=== PATIENT | male | born 1950 | race Caucasian/White ===

== ENCOUNTER 2016-08-22 09:53 | Inpatient (IN) ==
[2016-08-16 10:19] LABS: MANUAL DIFF NEEDED? NO; URINE MICRO REVIEW NEEDED? NO; URINE SOURCE CLEAN CATCH
--- NOTE | 2016-08-16 10:21 | EKG Report ---
Test Performed on : 08/16/2016 10:09:36 AM Test Reason : PAT Blood Pressure : / mmHG Vent. Rate : 065 BPM Atrial Rate : 091 BPM P-R Int : 000 ms QRS Dur : 148 ms QT Int : 450 ms P-R-T Axes : 000 -81 093 degrees QTc Int : 468 ms Ventricular-paced rhythm with occasional premature ventricular complexes. Abnormal ECG When compared with ECG of 19-FEB-2016 23:36, premature ventricular complexes. are now present Vent. rate has decreased BY 11 BPM Confirmed by Garcia KEARNEY, Steve Yepez ([id number]) on 08/16/2016 3:00:57 PM
[2016-08-16 11:07] LABS: BASO% 0.7 % (0.0-0.8); EOS# 0.31 X1000 (0.0-0.7); EOS% 3.8 % (0.0-10.0); HEMATOCRIT 35.9 % (42.0-52.0); HEMOGLOBIN 11.6 g/dL (14.0-18.0); LYMPH# 1.84 X1000 (1.2-3.4); LYMPH% 22.6 % (20.5-51.1); MCH 29.6 PG (27-31); MCHC 32.3 g/dL (33-37); MCV 91.6 FL (81-99); MONO# 0.67 X1000 (0.11-0.59); MONO% 8.2 % (1.7-9.3); MPV 12.2 FL (7.4-10.4); NEUT% 64.7 % (42.2-75.2); PLT 221 X1000 (130-400); RBC 3.92 XMIL (4.7-6.1)
[2016-08-16 11:09] LABS: BILIRUBIN URINE NEGATIVE (NEGATIVE); BLOOD URINE NEGATIVE (NEGATIVE); COLOR YELLOW; GLUCOSE URINE NEGATIVE (NEGATIVE); LEUKOCYTES URINE NEGATIVE (NEGATIVE); NITRITE URINE NEGATIVE (NEGATIVE); PH URINE 5.5; PROTEIN URINE 100 mg/dL (NEGATIVE); SP GRAVITY URINE 1.011; TURBIDITY URINE CLEAR (CLEAR); UROBILINOGEN URINE NORMAL (NORMAL)
[2016-08-16 11:12] LABS: UR EPITHELIAL CELLS <10 /HPF (<10); URINE BACTERIA NEGATIVE /HPF; URINE RBC <10 /HPF (<10); URINE WBC <10 /HPF (<10)
[2016-08-16 11:13] LABS: INR 1.07; PROTIME 11.3 Seconds (9.2-11.7)
[2016-08-16 11:21] LABS: AGAP 9; BUN 31 mg/dL (8-22); CALCIUM 9.4 mg/dL (8.8-10.2); CHLORIDE 109 mmol/L (98-107); COSMO 288; POTASSIUM 5.8 mmol/L (3.5-5.1); SODIUM 140 mmol/L (136-145); TCO2 22 mmol/L (25-35)
[~2016-08-22 09:53] MED LIST: ALDACTONE PO SCH; AMARYL PO SCH; GLUCOPHAGE PO SCH; LASIX PO SCH; NITROGLYCERIN SL PRN; PRINIVIL PO SCH; ZYLOPRIM PO SCH
[2016-08-22] MEDS ORDERED: PEPCID ONE (10:31)
[2016-08-22] MEDS ORDERED: COLACE ONE (10:31)
[2016-08-22] MEDS ORDERED: CELEBREX ONE (10:32)
[2016-08-22] MEDS ORDERED: REGLAN ONE (10:32)
[2016-08-22] MEDS ORDERED: LYRICA ONE (10:32)
[2016-08-22] MEDS ORDERED: LR 1,000 ML ONE (10:33)
[2016-08-22] MEDS ORDERED: KEFZOL 2 GM/D5W 2 GM/50 ML IVPB ONE (10:33)
[2016-08-22] MEDS ORDERED: DIPRIVAN 1% ONE (11:19)
[2016-08-22] MEDS ORDERED: QUELICIN (DOSE) ONE (11:19)
[2016-08-22] MEDS ORDERED: XYLOCAINE-MPF 2% ONE (11:19)
[2016-08-22] MEDS ORDERED: TORADOL ONE (12:13)
[2016-08-22] MEDS ORDERED: CYKLOKAPRON 1,000 MG/NS 1,000 MG/100 ML IVPB ONE (12:13)
[2016-08-22] MEDS ORDERED: DURAMORPH ONE (12:13)
[2016-08-22] MEDS ORDERED: EXPAREL 1.3% ONE (12:13)
[2016-08-22] MEDS ORDERED: NEOSPORIN G.U. IRRIGANT ONE (12:13)
[2016-08-22] MEDS ORDERED: SENSORCAINE 0.25%/EPI 1:200,000 ONE (12:13)
[2016-08-22] MEDS ORDERED: SODIUM CHLORIDE 0.9% ONE (12:13)
[2016-08-22] MEDS ORDERED: ZEMURON ONE ×2 (12:33→12:52)
[2016-08-22] MEDS ORDERED: DECADRON ONE (12:35)
[2016-08-22] MEDS ORDERED: OFIRMEV 1000 MG/ISOTONIC SOLN 1,000 MG/100 ML BOTTLE ONE (12:35)
[2016-08-22] MEDS ORDERED: EPHEDRINE ONE (13:06)
[2016-08-22] MEDS ORDERED: ROBINUL ONE ×2 (13:07→13:36)
[2016-08-22] MEDS ORDERED: NEOSTIGMINE ONE (13:37)
[2016-08-22] MEDS: MORPHINE ONE ×2 (14:41→14:51)
[2016-08-22] MEDS ORDERED: NS 1,000 ML ONE (14:41)
--- NOTE | 2016-08-22 14:56 | Diag Imaging Result Doc PS360 ---
SHOULDER 1 VIEW RIGHT - 08/22/2016 INDICATION: post op total shoulder TECHNIQUE: COMPARISON: 04/11/2015 FINDINGS: There is a right total shoulder arthroplasty. Alignment is anatomic. No hardware fracture or loosening. IMPRESSION: No evidence of complication. Electronically signed by Pardeep Johnson 08/22/2016 2:54 PM
[2016-08-22] MEDS ORDERED: ZOFRAN PO PRN (15:15)
[2016-08-22] MEDS ORDERED: MILK OF MAGNESIA PO PRN (15:15)
--- NOTE | 2016-08-22 15:31 | OPERATIVE NOTE ---
PROCEDURE DATE: 08/22/2016 PREOPERATIVE DIAGNOSIS: Right glenohumeral arthritis with chronic rotator cuff tear. POSTOPERATIVE DIAGNOSIS: Right glenohumeral arthritis with chronic rotator cuff tear. PROCEDURE: Right reverse shoulder arthroplasty, DePuy Delta XTEND size 14, Press-Fit stem, a size 42+ 6 humeral cup, a 42 eccentric Glenosphere and a standard metaglene. SURGEON: Steve Florentino MD MATHEMATICAL SCIENCES PROFESSOR: malt specifications control assistant: PARAS Fajardo 2ND MATHEMATICAL SCIENCES PROFESSOR: Elliot Kelley RN. ANESTHESIA: General. IV FLUIDS: 1200 mL lactated Ringer's. ESTIMATED BLOOD LOSS: 150 mL. COMPLICATIONS: None. INDICATION: The patient is a 65-year-old male with chronic history of worsening pain and discomfort of his right shoulder. Continued pain discomfort despite appropriate nonoperative treatment. His radiographic studies revealed findings consistent with degenerative glenohumeral arthritis with chronic rotator cuff tear. Recommendation to proceed with right reverse shoulder arthroplasty was offered. Risks and benefits of surgery were explained, including the risks of anesthesia, , bleeding, infection, failure to relieve pain, postoperative stiffness, nerve injury, blood clots, and other imponderables. All questions answered. The patient and family wished to proceed with surgery. DETAILS OF OPERATION: The patient was taken to the operating room, placed supinely on the operating table. Once adequate anesthesia was obtained, the patient was placed in a semi-Abbott beach-chair position. The right shoulder was subsequently prepped and draped in the usual sterile fashion. A standard deltopectoral incision was made with the skin knife. Medial and lateral skin envelopes were developed. Standard hemostasis was obtained using electrocautery. The deltopectoral interval was then developed. Christian retractors were placed. Attention then turned to the subscapularis after elevation of the conjoined tendon had been performed, and the deep Christian retractor was placed. Retracted the conjoined tendon. Stay sutures placed. 1 cm medial to the insertion site, the subscapularis was released. Attention was then turned to the proximal humerus. The patient did reveal the chronic rotator cuff tear involving the superior aspect of the rotator cuff. A starting reamer was then passed in the intramedullary canal. Sequential reaming was performed up to size 14. The intramedullary guide with a proximal humeral cutting block was pinned in position. The humeral head was then resected. A protective disk was then placed. Circumferential dissection was then performed with a deep knife. A guide was then placed on the glenoid and a guide pin was placed. Reaming was then conducted. The central hole was then dilated. Copious irrigation was then performed with antibiotic irrigation. A standard metaglene was then placed, four locking screws were placed and had good purchase and good, stable fixation. The wound was copiously irrigated once again. A 42 eccentric Glenosphere was then placed with eccentricity placed inferiorly. Attention was then turned to the proximal humerus where an intramedullary guide was placed in position and the proximal humerus was reamed. The intramedullary canal was copiously irrigated with antibiotic pulsatile lavage. A size 14 Press- Fit stem was then placed in position with autologous impaction and bone grafting. Had excellent good fixation and stability. A trial cup size had been placed, 42 +6. Appeared to have excellent stability and range of motion. It was determined to be the correct size. Trial cup was removed. The wound was copiously once again. A 42 + 6 humeral cup was then impacted on the stem. The shoulder was reduced, carried through range of motion and had excellent stability and range of motion. A #2 FiberWire was used to repair the subscapularis tendon. There appeared to be good repair. Exparel was placed in the deep soft tissue, as well as subcutaneous tissue. The wound was copiously irrigated once again with antibiotic irrigation. A 2-0 Vicryl was used to repair the subcutaneous tissue, followed by running 2-0 Prolene. Benzoin and Steri-Strips were applied. Adaptic, sterile 4 x 4, ABD pad and tape were applied to the right shoulder followed by shoulder immobilizer. All counts were correct. Patient tolerated the procedure well and was transferred to the recovery room in stable condition. cc: Steve Florentino MD
[2016-08-22] MEDS: NS 1,000 ML IV SCH (15:57)
[2016-08-22] MEDS: OXY IR PO PRN (15:58)
[2016-08-22] MEDS: MORPHINE IV PRN ×4 (17:18→20:23)
[2016-08-22] MEDS: TYLENOL PO SCH (18:09)
[2016-08-22] MEDS ORDERED: CYKLOKAPRON 1,000 MG in NS 100 ML IV ONE (19:00)
[2016-08-22] MEDS: PRAVACHOL PO SCH (21:22)
[2016-08-22] MEDS: RESTORIL PO SCH (21:22)
[2016-08-22] MEDS: COLACE PO SCH (21:22)
[2016-08-22] MEDS: PERIDEX MT SCH (21:23)
[2016-08-22] MEDS: PRADAXA PO SCH (21:23)
[2016-08-22] MEDS: KEFZOL 1 GM/D5W 1 GM/50 ML IVPB IV SCH (22:45)
[2016-08-23] MEDS: TYLENOL PO SCH ×4 (00:40→17:21)
[2016-08-23] MEDS ORDERED: HUMALOG SUBQ ONE (00:59)
[2016-08-23 01:21] LABS: BASO% 0.1 % (0.0-0.8); EOS# 0.01 X1000 (0.0-0.7); EOS% 0.1 % (0.0-10.0); HEMATOCRIT 35.1 % (42.0-52.0); HEMOGLOBIN 11.9 g/dL (14.0-18.0); IMM GRAN# 0.04 X1000 (0.0-0.04); IMM GRAN% 0.3 % (0.0-0.5); LYMPH# 0.63 X1000 (1.2-3.4); LYMPH% 4.3 % (20.5-51.1); MANUAL DIFF NEEDED? YES; MCH 29.8 PG (27-31); MCHC 33.9 g/dL (33-37); MCV 87.8 FL (81-99); MONO% 0.7 % (1.7-9.3); MPV 12.4 FL (7.4-10.4); NEUT% 94.5 % (42.2-75.2); PLT 242 X1000 (130-400)
[2016-08-23 01:29] LABS: INR 1.02; PROTIME 10.7 Seconds (9.2-11.7)
[2016-08-23 01:42] LABS: BANDS 12 % (0-1); LYMPHS 2 % (21-51)
[2016-08-23 02:18] LABS: CALCIUM 8.8 mg/dL (8.8-10.2); POTASSIUM 5.1 mmol/L (3.5-5.1); TOTAL BILIRUBIN 0.24 mg/dL (0.20-1.00); TOTAL PROTEIN 6.9 g/dL (6.3-8.3)
[2016-08-23] MEDS: KEFZOL 1 GM/D5W 1 GM/50 ML IVPB IV SCH (03:04)
[2016-08-23] MEDS: MORPHINE IV PRN (03:12)
[2016-08-23 06:13] LABS: HEMATOCRIT 32.7 % (42.0-52.0); HEMOGLOBIN 10.8 g/dL (14.0-18.0)
[2016-08-23] MEDS: HUMALOG SUBQ SCH ×6 (06:18→21:55)
[2016-08-23 06:50] LABS: URINE MICRO REVIEW NEEDED? NO; URINE SOURCE CATH
--- NOTE | 2016-08-23 06:57 | EKG Report ---
Test Performed on : 08/23/2016 06:24:04 AM Test Reason : Post-Op,Hypothermia,Uncontrolled DM Blood Pressure : / mmHG Vent. Rate : 083 BPM Atrial Rate : 108 BPM P-R Int : 000 ms QRS Dur : 102 ms QT Int : 364 ms P-R-T Axes : 000 067 -39 degrees QTc Int : 427 ms Atrial fibrillation. Low voltage QRS Nonspecific T wave abnormality Abnormal ECG When compared with ECG of 16-AUG-2016 10:09, Atrial fibrillation. has replaced Electronic ventricular pacemaker Confirmed by Horace KEARNEY, Berhane Morrison ([id number]) on 08/24/2016 1:00:06 PM
[2016-08-23] MEDS ORDERED: HUMALOG SUBQ SCH (07:00)
[2016-08-23 07:01] LABS: BILIRUBIN URINE NEGATIVE (NEGATIVE); BLOOD URINE MODERATE (NEGATIVE); COLOR YELLOW; GLUCOSE URINE NEGATIVE (NEGATIVE); LEUKOCYTES URINE NEGATIVE (NEGATIVE); NITRITE URINE NEGATIVE (NEGATIVE); PROTEIN URINE 30 mg/dL (NEGATIVE); SP GRAVITY URINE 1.018; TURBIDITY URINE CLEAR (CLEAR); UROBILINOGEN URINE NORMAL (NORMAL)
[2016-08-23 07:02] LABS: UR EPITHELIAL CELLS <10 /HPF (<10); URINE BACTERIA NEGATIVE /HPF; URINE RBC TNTC /HPF (<10); URINE WBC <10 /HPF (<10)
[2016-08-23] MEDS ORDERED: INSULIN PEN NEEDLES ONE (07:09)
[2016-08-23 07:38] LABS: HEMOGLOBIN A1C 6.7 % (4.8-6.0)
--- NOTE | 2016-08-23 07:39 | CONSULTATION ---
DATE OF CONSULTATION: 08/23/2016 PRIMARY CARE PROVIDER: Dr. Lee. TIME OF CONSULTATION: 0030. REASON FOR ADMISSION: For a right reverse shoulder arthroplasty with Dr. Florentino. HISTORY OF PRESENT ILLNESS: Mr. Fernandez is a 66-year-old, male who is being followed by Dr. Florentino for a chronic history of worsening pain and discomfort in his right shoulder. He has right glenohumeral arthritis with chronic rotator cuff tear. He underwent a right reverse shoulder arthroplasty with Dr. Florentino on the morning of 2016. Early this morning, the patient's nurse did notify Dr. Alejo, who was on-call for Dr. Florentino, that the patient had become hypothermic as well as was having some elevated blood glucose levels. Dr. Alejo asked that the hospitalist service be consulted for assistance with medical management. The patient at this time is awake, alert, and oriented to person, place, time, and situation. He denies any pain at this time. He also denies any shortness of breath or chest pain. The patient does report that he is chilled. He did have a rectal temperature of 95.1 degrees. It does look like throughout the day, the patient's temperature did run a little on the low side with readings of 96.2 orally and 96.9 orally. Also, unfortunately, since the patient was NPO for surgery this morning, he did not receive his usual dosage of Levemir 50 units subcutaneous q.a.m. At this time, his blood glucose levels are elevated, reaching as high as in the mid to high 300s. During surgery, the patient did receive reported 1200 mL of lactated Ringer's. He only had an estimated blood loss of 150 mL. Since then, he has been on normal saline at 83 mL per hour and has no signs of any bleeding. He is having adequate urine output as well. The patient does report that he was recently treated, 1-1/2 months ago, for pneumonia. He reports that he, over the past couple of weeks, has had a productive cough with clear sputum that has been green at times. He denies any fever, body aches, or chills. The patient states he feels like he has a rattle in his throat, though at this time is in no respiratory distress and is maintaining adequate oxygen saturation. He denies any chest pain, abdominal pain, nausea, vomiting, or diarrhea. He denies any pain or burning with urination, and denies any pain in his extremities except for his right shoulder which at this time, his pain is controlled. The patient did report that a few days ago, he has some slight swelling in his lower extremities, though there is none present at this time. REVIEW OF SYSTEMS: A 12 point review of systems was conducted with the patient. All were negative except for pertinent positives mentioned above in the HPI. PAST MEDICAL HISTORY: 1. Coronary artery disease, status post myocardial infarction in 2002 with subsequent PCI in 2002. The patient is also status post pacemaker placement in November 2008 for sick sinus syndrome. The patient also does have a history of atrial fibrillation as well and is currently still on Pradaxa 150 mg p.o. twice daily. 2. Congestive heart failure with last echocardiogram in July of 2015 with an ejection fraction of 58%. 3. Diabetes mellitus type 2. 4. Hypertension. 5. Dyslipidemia. 6. History of stroke. 7. Gout. 8. Chronic neck and back pain secondary to degenerative disk disease. 9. Osteoarthritis. 10. Hypothyroidism. PAST SURGICAL HISTORY: 1. Cardiac stent placement in 2002. 2. Pacemaker placement in 2008. 3. Reported ear surgery several years ago for some inner ear issues and equilibrium problems. SOCIAL HISTORY: The patient denies any past or present tobacco or illicit drug use, though did report that he did drink heavily daily for approximately 20 years, though quit in 2002 when he had his heart attack. He states now he only drinks rarely. FAMILY HISTORY: There is a family history of diabetes, dyslipidemia, hypertension, and stroke, as well as heart disease and his mother does have a history of lung cancer. ALLERGIES: Patient reports no known allergies. HOME MEDICATIONS: Allopurinol 300 mg p.o. q.a.m., amlodipine 10 mg p.o. q.a.m. , aspirin 81 mg p.o. q.a.m., atenolol 25 mg p.o. q.a.m., Pradaxa 150 mg p.o. b.i.d., Lasix 80 mg p.o. b.i.d., gabapentin extended release 600 mg p.o. q.a.m., glimepiride 1 mg p.o. daily, Potter 10 mg 1 p.o. t.i.d. for pain, Levemir 50 units subcutaneous q.a.m., lisinopril 40 mg p.o. q.a.m., metformin 500 mg p.o. b.i.d., nitroglycerin sublingual 0.4 mg q.5 minutes p.r.n. for chest pain, pravastatin 20 mg p.o. at bedtime, Aldactone 25 mg a half tablet p.o. q.a.m., and temazepam 30 mg p.o. at bedtime. DIAGNOSTIC DATA/LABORATORY RESULTS: White blood cell count 14.73, hemoglobin 11.9, hematocrit 35.1, platelet count 242,000. PT 10.7, INR 1.02, PTT is 31. Sodium 135, potassium 5.1, chloride 102, bicarb 18, BUN 51, creatinine 1.6, with a GFR of 44, glucose 343, calcium 8.8. Liver function tests are within normal limits. Urinalysis was obtained via clean catch. It was positive for protein. It was negative for glucose, ketones, blood, nitrites, leukocytes, white blood cells, or bacteria. Portable chest x-ray shows no acute abnormality. There was some haziness noted in the right lung base, though this was present on a previous chest x-ray from February for which radiology reported that this was stable pleural-based scarring. This does not appear any worse at this time, though we are awaiting official radiology over-read. He also does have a pacemaker noted as well. Pending diagnostic studies at this time are an EKG as well as hemoglobin A1c. PHYSICAL EXAMINATION: Vital Signs: Temperature 95.1 degrees rectally, heart rate 90, respirations 20, blood pressure 148/76. Oxygen saturation is 100% on nasal cannula at 2 L. General: Mr. Fernandez is a very pleasant, 66-year-old, male who is resting comfortably in the inpatient bed. He was in no acute distress. He was awake, alert, and able to answer all questions appropriately. HEENT: Head is atraumatic, normocephalic. Pupils are equal, round, reactive to light, were 3 mm bilaterally and brisk. Oral mucosa is moist. Oropharynx is clear. Neck: Supple. Trachea midline. No JVD noted. Cardiovascular: Patient has normal S1, S2. No murmurs, gallops, or rubs appreciated, with a regular rate and rhythm. Pulmonary: Patient has symmetrical chest expansion bilaterally. Lung sounds were clear in bilateral lung helton except for a very slight expiratory wheeze. Abdomen: Soft, nontender, nondistended. The patient does have a protuberant abdomen noted. Bowel sounds are present in all 4 quadrants, though are slightly hypoactive. Genitourinary: Patient does have a Samano catheter in place at this time with clear yellow urine noted to the Samano drainage bag. Extremities: No cyanosis, clubbing, or edema noted. Pulse, motor, and sensory are intact in all extremities. Pedal pulses are 3+ bilaterally. The patient does have a right shoulder immobilizer noted to the right arm. His surgical site at this time does have a bandage noted , though this appears to be clean and intact. No saturation of the surgical dressing noted. Integumentary: The patient's skin is pink, warm, dry, and intact except for above mentioned surgical wound. Neurological: Patient is alert and oriented to person, place, time, and situation. Cranial nerves 2-12 are grossly intact. ASSESSMENT AND PLAN: 1. Postoperative right reverse shoulder arthroplasty for right glenohumeral arthritis with a chronic rotator cuff tear with Dr. Florentino. At this time, the patient's pain is well controlled. We will refer to Dr. Florentino for further management of this. 2. Hypothermia. The patient was initially hypothermic with a rectal temperature of 95.1. A warming blanket was placed on the patient. At this time his temperature has returned within normal limits with the last temperature of 98 degrees, though we have still continued with vital signs every 4 hours and we will closely monitor his temperature, and treat if necessary. This could be likely related to his surgery and anesthetic medications. 3. Uncontrolled diabetes mellitus type 2. The patient was previously on oral diabetic medications of glimepiride and metformin, though given that he is creatinine is slightly elevated, and for better glucose control, we will hold these at this time. We will continue his Levemir 50 units subcutaneous every morning, though we will place him on a sliding scale lispro insulin low-dose protocol every 4 hours. 4. Leukocytosis. The patient has not been febrile. As previously mentioned, he did have a brief period of hypothermia after surgery. This has resolved. He has no other signs of infection at this time. This could be stress related to surgery. We will just continue to monitor him at this time. Repeat CBC in the morning. 5. Acute kidney injury. This could be multifactorial, secondary to the patient' s surgery as well as medication-related. We will hold his Aldactone, lisinopril, and Lasix for 24 hours. We will continue with gentle fluid resuscitation with normal saline at 83 mL per hour. We will renally dose all his other medications as necessary. 6. Hypertension. We will continue his Norvasc and atenolol as previously prescribed. We will monitor his blood pressure closely. 7. Coronary artery disease, status post cardiac stent placement. We will continue the patient's aspirin. We have ordered for an EKG to be performed and are awaiting at this time. The patient has been placed on telemetry. 8. History of atrial fibrillation. We will continue the patient's Pradaxa. As previously mentioned, we have ordered the patient to receive an EKG as well as be placed on telemetry. 9. History of congestive heart failure. The patient does not have any signs of volume overload. He has no jugular venous distention, no swelling in his extremities. Given that he has an acute kidney injury at this time, we will hold his Lasix and Aldactone, and continue to monitor closely. 10. We will repeat a CBC and CMP tomorrow morning. Further orders and recommendations pending hospital course, diagnostic studies, and physician evaluation. Dictated by MESERET Diane for Charo Antonio MD Seen,examined and discussed case with MANAGER SOFTWARE. cc: MD Steve Ewing MD [facility]
--- NOTE | 2016-08-23 07:40 | Diag Imaging Result Doc PS360 ---
EXAM: CHEST-PORTABLE HISTORY: wheezing, productive cough TECHNIQUE: AP portable at 0145 COMMENT: There continues to be pleural thickening and/or loculated effusion on the right. There is cardiomegaly. Overall the appearance of the chest has not changed significantly since 02/13/2016. IMPRESSION: Stable chest. Electronically signed by Dane Yi 08/23/2016 7:38 AM
[2016-08-23] MEDS: OXY IR PO PRN (09:04)
[2016-08-23] MEDS: COLACE PO SCH ×2 (09:04→20:36)
[2016-08-23] MEDS: GRALISE PO SCH (09:04)
[2016-08-23] MEDS: PEPCID PO SCH (09:04)
[2016-08-23] MEDS: PRADAXA PO SCH ×2 (09:05→20:35)
[2016-08-23] MEDS: ASPIRIN EC PO SCH (09:06)
[2016-08-23] MEDS: TENORMIN PO SCH (09:06)
[2016-08-23] MEDS: NORVASC PO SCH (09:06)
[2016-08-23] MEDS: LEVEMIR SUBQ SCH (09:07)
[2016-08-23] MEDS: PERIDEX MT SCH ×2 (09:09→20:35)
[2016-08-23] MEDS ORDERED: G.I. COCKTAIL PO ONE (17:14)
[2016-08-23] MEDS ORDERED: PRILOSEC PO ONE (17:15)
[2016-08-23] MEDS: NS 1,000 ML IV SCH ×2 (17:19→18:37)
[2016-08-23] MEDS: PRAVACHOL PO SCH (20:35)
[2016-08-23] MEDS: RESTORIL PO SCH (20:36)
[2016-08-24] MEDS: TYLENOL PO SCH ×6 (00:07→23:32)
[2016-08-24] MEDS: HUMALOG SUBQ SCH ×6 (02:40→22:05)
[2016-08-24] MEDS: NS 1,000 ML IV SCH ×3 (03:05→23:38)
[2016-08-24] MEDS: OXY IR PO PRN ×3 (04:42→23:33)
[2016-08-24] MEDS: PRILOSEC PO SCH ×2 (04:52→06:06)
[2016-08-24 05:49] LABS: HEMATOCRIT 31.7 % (42.0-52.0); HEMOGLOBIN 10.3 g/dL (14.0-18.0); MCH 29.6 PG (27-31); MCHC 32.5 g/dL (33-37); MCV 91.1 FL (81-99); MPV 12.3 FL (7.4-10.4); RBC 3.48 XMIL (4.7-6.1)
[2016-08-24 06:08] LABS: HEMOGLOBIN A1C 6.9 % (4.8-6.0)
[2016-08-24 06:14] LABS: CALCIUM 8.5 mg/dL (8.8-10.2); POTASSIUM 4.8 mmol/L (3.5-5.1)
--- NOTE | 2016-08-24 06:42 | PROGRESS NOTE ---
DATE: 08/24/2016 SUBJECTIVE: The patient is a pleasant 66-year-old male who is 2 days status post right reverse total shoulder arthroplasty. The patient feels better this morning. He was having some nausea with his stomach and some vomiting; this has improved. He also was noted yesterday to have acute kidney injury with creatinine of 1.6. Hospitalist, Dr. Antonio, has been consulted, and he is assisting with medical management. OBJECTIVE: On physical exam, the patient's right upper extremity, the wound looks good. There are no signs or symptoms of infection. He is neurovascularly intact throughout. LABORATORY DATA: His hemoglobin is 10.3, hematocrit is 31.7. His creatinine is 1.7. IMPRESSION: 1. Postoperative day number 2, status post right reverse total shoulder arthroplasty. 2. Acute renal injury. 3. Uncontrolled diabetes mellitus type 2. 4. Hypertension. 5. Coronary artery disease. PLAN: At this point, the patient has improved. He is feeling better this morning. We will continue with mobilization as tolerated. We will await Dr. Antonio's evaluation and treatment recommendations. cc: Steve Florentino MD
--- NOTE | 2016-08-24 06:56 | PROGRESS NOTE ---
DATE: 08/24/2016 SUBJECTIVE: Patient is a pleasant 66-year-old male who is 1 day status post right reverse total shoulder arthroplasty. The patient is currently resting comfortably this morning. Did experience some hypothermia through the night, as well as elevated glucose level secondary to uncontrolled diabetes. Dr. Antonio was consulted to assist with medical management. PHYSICAL EXAMINATION: Patient is awake, alert, and cooperative with exam. His right extremity dressing is intact. He is neurovascularly intact throughout. 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 He is neurovascularly intact distally. LABORATORY DATA: His hemoglobin is 10.8, hematocrit 32.7. IMPRESSION: 1. Postoperative day #1. 2. Uncontrolled diabetes mellitus type 2. 3. Acute renal injury. PLAN: At this point, I appreciate Dr. Antonio's assistance. The patient is currently undergoing workup with medical evaluation. We will await the results. We will continue his IV fluids and will discontinue his Samano. All questions were answered. cc: Steve Florentino MD MTDD
--- NOTE | 2016-08-24 07:45 | Diag Imaging Result Doc PS360 ---
EXAM: KUB ABDOMEN HISTORY: nausea TECHNIQUE: AP portable abdomen at 0550 COMMENT: The abdomen appears to be distended although there is not much in the way of bowel gas. What there is is mostly in the transverse and sigmoid colon. The stomach does not appear to be significantly distended. There is no definite evidence of organomegaly or mass. There are no previous studies. IMPRESSION: Nonspecific bowel gas pattern. The possibility of ascites cannot be excluded. Electronically signed by Dane Yi 08/24/2016 7:43 AM
[2016-08-24] MEDS: PRADAXA PO SCH ×3 (08:03→21:22)
[2016-08-24] MEDS: TENORMIN PO SCH (08:03)
[2016-08-24] MEDS: COLACE PO SCH ×2 (08:03→20:53)
[2016-08-24] MEDS: GRALISE PO SCH (08:03)
[2016-08-24] MEDS: PEPCID PO SCH (08:03)
[2016-08-24] MEDS: ASPIRIN EC PO SCH (08:03)
[2016-08-24] MEDS: PERIDEX MT SCH ×2 (08:03→20:52)
[2016-08-24] MEDS: NORVASC PO SCH (08:03)
[2016-08-24] MEDS: LEVEMIR SUBQ SCH (08:04)
--- NOTE | 2016-08-24 11:26 | Diag Imaging Result Doc PS360 ---
EXAM: US RENAL 2 (RETROPER) COMPLETE HISTORY: joselin/arf TECHNIQUE: Renal ultrasound COMMENT: The detail is very poor due to the patient's body habitus and clinical condition not being able to move the right arm. The urinary bladder appears to be slightly distended. The right kidney is not visualized and sent to the however there is no apparent gross abnormality. There is no evidence of hydronephrosis on either side. IMPRESSION: No evidence of hydronephrosis. Mild distention of the urinary bladder. Electronically signed by Dane Yi 08/24/2016 11:24 AM
[2016-08-24 13:02] LABS: UR CREAT RANDOM 56.2 mg/dL (14-26); UR PROT RANDOM 17.7 mg/dL
[2016-08-24] MEDS: PRAVACHOL PO SCH (20:52)
[2016-08-24] MEDS: RESTORIL PO SCH (21:21)
[2016-08-25] MEDS: HUMALOG SUBQ SCH ×4 (02:40→15:10)
[2016-08-25] MEDS: TYLENOL PO SCH ×2 (05:04→12:19)
[2016-08-25] MEDS: PRILOSEC PO SCH ×2 (05:05→08:28)
[2016-08-25 05:33] LABS: HEMATOCRIT 28.8 % (42.0-52.0); HEMOGLOBIN 9.3 g/dL (14.0-18.0)
[2016-08-25 07:50] LABS: CALCIUM 8.2 mg/dL (8.8-10.2); POTASSIUM 4.4 mmol/L (3.5-5.1)
[2016-08-25] MEDS: PEPCID PO SCH (08:25)
[2016-08-25] MEDS: GRALISE PO SCH ×2 (08:26→08:29)
[2016-08-25] MEDS: COLACE PO SCH (08:26)
[2016-08-25] MEDS: ASPIRIN EC PO SCH (08:26)
[2016-08-25] MEDS: TENORMIN PO SCH (08:27)
[2016-08-25] MEDS: NORVASC PO SCH (08:27)
[2016-08-25] MEDS: PRADAXA PO SCH (08:27)
[2016-08-25] MEDS: LEVEMIR SUBQ SCH (08:29)
[2016-08-25] MEDS: PERIDEX MT SCH (08:30)
[2016-08-25 11:29] VITALS: BP 134/62
[2016-08-25] MEDS: OXY IR PO PRN (12:10)
[2016-08-25] MEDS: NS 1,000 ML IV SCH (12:18)
--- NOTE | 2016-09-15 21:59 | DISCHARGE SUMMARY ---
ADMISSION DATE: 08/22/2016 DISCHARGE DATE: 08/25/2016 DISCHARGE DIAGNOSES: 1. Reverse shoulder arthroplasty rotator cuff repair. 2. Hypothermia. 3. Type 2 diabetes. 4. Leukocytosis. 5. Acute kidney injury. 6. Hypertension. 7. Coronary artery disease. 8. Atrial fibrillation. 9. Congestive heart failure. HOSPITAL COURSE: Briefly, this is a 66-year-old gentleman admitted on the per Dr. Florentino, underwent surgery on the . Consult was done on the , medical consult for us because of hypothermia, blood pressure 95. He also had some relative hyperglycemia, blood sugars in the 300s, and he had some mild renal insufficiency with a creatinine of 1.6. He was given gentle hydration. His temperature had restored up to 98. He had a little bit of leukocytosis. His Aldactone, lisinopril and Lasix were held and he was given some fluids. He clinically improved. He did have some mild renal insufficiency, which was why we monitored him for a couple of days. Initial creatinine when he came in was 1.2. It went up to 1.6, on the it went up to 1.7, but was better after hydration, 1.5. He sugars also improved. Blood sugar the morning of discharge was 148. He did have a little bit of dyspnea, but without maryann hypoxia. Dr. Florentino I believe discharged him on the . His renal ultrasound on the showed no hydronephrosis. He did have some urinary retention and urine did not show evidence of UTI, although he had some hematuria, but I think that may have been related to the Samano. He was discharged in stable condition on his regular medications. He will need to follow up with his PCP, who is Dr. Lee, I think, for re- evaluation of his kidney function, hemoglobin and hematocrit and subsequently followed. He had been on allopurinol, amlodipine 10, aspirin 81, atenolol 25, Pradaxa 150 b.i.d., Lasix 80 b.i.d., Aleve 600 daily, glimepiride 1 daily, Levemir 50 daily, lisinopril 40 daily, Glucophage 500 b.i.d., which will need to be monitored with his renal insufficiency, and nitroglycerin p.r.n., pravastatin, Aldactone 12.5 daily and temazepam 30 at night. he will need a followup basic and CBC when he follows up with his primary care physician, Dr. Lee. cc: MD Steve Chatterjee MD Adnan A. Seljuki, MD
== END 2016-08-25 16:39 | disposition home health service (06) ==
LOC: SURHOLD 09:53 → SUATTDRO 09:53 → 4N 14:06
PROVIDERS: ADMIT Orthopaedic Surgery Adult Reconstructive Orthopaedic Surgery; ATTEND Internal Medicine

== ENCOUNTER 2019-05-02 12:06 | Inpatient (IN) ==
--- NOTE | 2019-05-02 13:33 | PROVIDER DOCUMENTATION ---
HPI-General Adult - General Chief Complaint: Edema Stated Complaint: SOB,LEGS SWELLING,HAVE CHF Time Seen by Provider: 05/02/19 13:11 Source: patient Allergies/Adverse Reactions: Patient Allergies Allergy/AdvReac Type Severity Reaction Status Date / Time No Known Allergies Allergy Verified 01/13/19 22:28 Home Medications: Home Medication List Medication Instructions Recorded Confirmed Last Taken Type Allopurinol 300 mg PO QAM 03/28/14 05/02/19 01/13/19 History Nitroglycerin Sl [Nitroglycerin] 0.4 mg SL Q5M PRN PRN #1 tablet 04/02/14 05/02/19 01/13/19 Rx Furosemide [Lasix] 80 mg PO BID 09/07/14 05/02/19 01/13/19 History Pravastatin Sodium 20 mg PO QHS 09/07/14 05/02/19 01/13/19 History Insulin Detemir [Levemir] 25 units SQ BID 07/03/15 05/02/19 01/13/19 History Hydrocodone/Acetaminophen 1 each PO TID PRN 12/02/16 05/02/19 01/13/19 History [Hydrocodone-Acetamin 10-325 mg] Ferrous Sulfate [Iron] 325 mg PO DAILY 06/02/18 05/02/19 01/13/19 History Gabapentin 300 mg PO TID 06/02/18 05/02/19 01/13/19 History Levothyroxine [Synthroid] 50 microgm PO DAILY 06/03/18 05/02/19 01/13/19 History Apixaban [Eliquis] 5 mg PO BID 07/17/18 05/02/19 01/13/19 History Clopidogrel Bisulfate [Plavix] 75 mg PO DAILY 07/17/18 05/02/19 01/13/19 History Metoprolol Succinate E.r. [Toprol 75 mg PO DAILY 07/17/18 05/02/19 01/13/19 History Xl] - History of Present Illness -Gen Adult Nature of Presenting Problems: Patient comes in with having 2 days of increasing Edema in bilateral lower he has CHF and recently had a pacemaker implanted. He also has CKD Review of Systems - Adult - REVIEW OF SYSTEMS - ADULT Constitutional: reports: no symptoms reported. denies: chills, fever, fatique, night sweats, weight gain, weight loss Eyes: reports: no symptoms reported. denies: discharge, dry eyes, decreased vision, blurred vision, double vision, eye pain, redness Ears, Nose, Mouth & Throat: reports: no symptoms reported. denies: ear pain, hearing loss, tinnitus, epistaxis, sinus problem, mouth/dental pain, mouth swelling, hoarseness, throat swelling Cardiovascular: reports: see HPI, edema. denies: heart murmur, irregular heart rate, orthopnea, palpitations, poor circulation, PND, syncope Respiratory: reports: see HPI, dyspnea on exertion, shortness of breath, wheezing. denies: cough, hemoptysis, pleurisy Gastrointestinal: reports: no symptoms reported. denies: abdominal pain, constipation, diarrhea, difficulty swallowing, nausea, poor appetite, rectal bleeding, vomiting Genitourinary: reports: no symptoms reported. denies: dysuria, discharge, flank pain, hematuria, hesitency, urinary retention Musculoskeletal: reports: no symptoms reported. denies: bone pain, back pain, frequent leg cramps, joint swelling, muscle aches, muscle weakness, neck pain Integumentary: reports: no symptoms reported. denies: hives, hair loss, itching, mole changes, rash, skin sores/ulcer Neurological: reports: no symptoms reported. denies: dizziness/vertigo, headache/migraines, loss of balance, seizure, slurred speech, syncope Psychiatric: reports: no symptoms reported. denies: anxiety, anti-depressant use, alcohol/drug dependence, depression, emotional problems, insomnia, panic attacks Endocrine: reports: no symptoms reported. denies: change in skin pigment, excessive sweating, cold intolerance, heat intolerance, increased hunger, incr eased thirst, polyuria Hematologic/Lymphatic: reports: no symptoms reported. denies: blood clots, easy bruising, low blood count, lymphedema, prolonged bleeding, swollen lymph nodes, transfusions Allergic/Immunologic: reports: no symptoms reported. denies: allergic reactions, eczema, frequent infections, hives, positive PPD, urticaria All Other Systems: Reviewed and Negative Past History - Adult - PAST MEDICAL HISTORY-ADULT Review of Records: reports: Old Records Reviewed, Nursing Assessment Review, Medications Reviewed, Social history reviewed & non-contributory. Major Childhood Illnesses: reports: denies history Cardiovascular: reports: arrhythmia (a flutter), CAD, CHF, HTN, hyperlipidemia, CA, pacemaker Respiratory: reports: sleep apnea Gastrointestinal: reports: denies history Obstetrical/Gynecological: reports: denies history Genitourinary: reports: denies history Musculoskeletal: reports: arthritis (OA), chronic pain (PAIN CLINIC PT), neck/back injury, other (neuropathy) Neurological: reports: CVA, stroke deficits (right sided), TIA Endocrine/Immune: reports: Diabetes Other Conditions: reports: denies history - PRIOR SURGERIES/PROCEDURES Surgical/Procedure History: reports: cardiac stent, pacemaker, orthopedic (extremity) (right shoulder), joint replacement (R shoulder), other (ear; ppm) - PRIOR HOSPITALIZATIONS Prior Hospitalizations: reports: for similar symptoms - IMMUNIZATION STATUS Childhood Immunizations: See Nurse Assessment Flu Vaccine: See Nurse Assessment - FAMILY HISTORY Family History: reviewed, not pertinent - SOCIAL HISTORY Smoking: denies Substance Use: none/never Living Situation: family Physical Exam-General - PHYSICAL EXAM-ADULT Initial Vital Signs Reviewed: Yes - CONSTITUTIONAL General Appearance: appears well, alert, no apparent distress - EYES Eyes: PERRL/EOMI, pink conjunctivae - HEAD, EARS, NOSE, MOUTH & THROAT HENMT: normocephalic/atraumatic, moist mucous membranes - NECK Neck: non-tender, full range of motion - RESPIRATORY Respiratory: chest non-tender, wheezing, prolonged expiration, crepitus - CARDIOVASCULAR Cardiovascular: normal peripheral pulses, regular rate, rhythm - GASTROINTESTINAL (ABDOMEN) Abdominal Exam: normal bowel sounds, non tender, soft - LYMPHATIC Lymphatic: no adenopathy - MUSCULOSKELETAL Back Exam: normal inspection, no CVA tenderness, no vertebral tenderness Extremity: normal range of motion, non-tender, normal gait - SKIN Integumentary: normal color, normal turgor, warm/dry - NEUROLOGIC 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, grossly normal - PSYCHIATRIC Psych/Mental Status: normal mood/affect, normal thought content, normal thought process, oriented x 3 Progress - PLAN OF CARE/RESULTS Progress/Plan/Lab Results: Vital Signs - 8 hr 05/02/19 12:22 Temperature 98.3 F Pulse Rate 60 Respiratory Rate 17 Blood Pressure 136/76 O2 Sat by Pulse Oximetry 99 Orders Category Date Time Status cxr [CHEST-2 VIEWS] [RAD] Stat Exams 05/02/19 13:20 Ordered BNP [PRO B-NATRIURETIC PEPTIDE] Stat Lab 05/02/19 13:22 Uncollected CBC WITH DIFF [HEME] Stat Lab 05/02/19 13:19 Uncollected CMP [COMPREHENSIVE METABOLIC PANEL] [CHEM] Stat Lab 05/02/19 13:20 Uncollected Result Diagrams: 05/02/19 13:50 05/02/19 13:50 - CONSULTS/PCP/HOSPITALIST Notification #1 *Consult/PCP/Hospitalist*: dr horvath Time Discussed: 15:05 Consult Disposition: Admit Departure - Departure Date of Disposition Decision: 05/02/19 Time of Disposition Decision: 15:06 DIAGNOSIS: CHF exacerbation Qualifiers: Heart failure type: unspecified Qualified Code(s): I50.9 - Heart failure, unspecified Disposition: HOME 01 Certified Medical Emergency: Emergent Condition: Good Additional Instructions: ED Follow Up Instructions: You have been treated by a care provider in the Emergency Department. These instructions are being provided to you so you can have an understanding of how to care for yourself upon discharge. Upon discharge from the Emergency Department, you are responsible for making arrangements for follow-up care by a physician of your choice. Take all prescribed medications as directed. Return to the Emergency Department immediately for any new or worsening sympt oms. You may call the Physician Referral phone number at [phone] to obtain a list of Physicians who are taking new patients. Referrals and Follow-Ups: So Lee MD [Primary Care Provider] - - Critical Care Note This patient required my direct & personal management of CC.: No Attestation - Physician/ KENY Attestation Patient care was provided by Advanced Practice Provider:: Yes Advanced Practice Provider:: Tiana Hollins Advanced Practice Provider documentation review:: The Mid-level provider do cumentation, treatment plan and medical decision making was reviewed by the physician who agrees with all treatment and medical decision making by the MLP. The physician spent face to face time with patient:: No Advanced Practice Provider documentation review:: Supervising physician onsite and consulted in the evaluation and care of this patient. The physician did not have a face to face encounter with the patient.
[2019-05-02 14:13] LABS: BASO# 0.03 X1000 (0.0-0.2); BASO% 0.4 % (0.0-0.8); EOS% 2.8 % (0.0-10.0); HEMATOCRIT 35.8 % (42.0-52.0); HEMOGLOBIN 11.8 g/dL (14.0-18.0); IMM GRAN# 0.02 X1000 (0.0-0.04); IMM GRAN% 0.3 % (0.0-0.5); LYMPH# 1.34 X1000 (1.2-3.4); LYMPH% 18.7 % (20.5-51.1); MCH 30.2 PG (27-31); MCV 91.6 FL (81-99); MONO% 5.6 % (1.7-9.3); MPV 11.8 FL (7.4-10.4); NEUT# 5.16 X1000 (1.4-6.5); NEUT% 72.2 % (42.2-75.2); PLT 182 X1000 (130-400); RBC 3.91 XMIL (4.7-6.1); WBC 7.15 X1000 (4.8-10.8)
--- NOTE | 2019-05-02 14:37 | Diag Imaging Result Doc PS360 ---
EXAM: CHEST-2 VIEWS INDICATION: edema TECHNIQUE: 2 views COMPARISON: 01/13/2019 FINDINGS: There is stable blunting of the right costophrenic angle suggesting a chronic loculated effusion or chronic pleural scarring. There is stable ill-defined opacity projecting of the right lower lung zone that may also represent loculated fluid or scarring. It is seen on several previous studies. No new consolidation is identified. There is no evidence of pneumothorax. There is stable mild cardiomegaly. The pacemaker leads are in stable position. IMPRESSION: Stable chronic changes at the right lower lung zone as described. Electronically signed by Arnaldo Lovett 05/02/2019 2:34 PM
[2019-05-02 14:44] LABS: ALB/GLOB RATIO 1.2; ALBUMIN 3.3 g/dL (3.5-5.0); CALCIUM 8.7 mg/dL (8.8-10.2); CREATININE 1.3 mg/dL (0.7-1.2); POTASSIUM 4.2 mmol/L (3.5-5.1); TOTAL BILIRUBIN 0.35 mg/dL (0.20-1.00); TOTAL PROTEIN 6.1 g/dL (6.3-8.3)
[2019-05-02] MEDS ORDERED: LASIX IV ONE (14:59)
[2019-05-02] MEDS ORDERED: TYLENOL PO PRN (15:49)
[2019-05-02] MEDS ORDERED: ZOFRAN IV PRN (15:49)
[2019-05-02] MEDS ORDERED: NITROGLYCERIN SL PRN (15:51)
[2019-05-02] MEDS ORDERED: NORCO-10 PO PRN (15:51)
[2019-05-02] MEDS ORDERED: HYZAAR 100/12.5 MG TAB PO ONE (15:54)
[2019-05-02] MEDS: HUMALOG SUBQ SCH ×2 (16:00→23:15)
[2019-05-02] MEDS: NEURONTIN PO SCH (17:27)
--- NOTE | 2019-05-02 17:31 | HISTORY AND PHYSICAL ---
CHIEF COMPLAINT: Shortness of breath. PRESENT ILLNESS: This is the first recent [facility] admission for this 68-year-old white man, patient of Dr. Lee, who became short of breath and noticed increased ankle swelling and presented to the emergency room for evaluation. There is history of atrial fibrillation, and he recently had his pacemaker replaced. He has noticed decrease in exercise tolerance for about a week with shortness of breath when walking about 50 yards. This causes him to stop and catch his breath. He also has noticed increase in ankle edema despite p.o. Lasix 80 mg daily. He is a diabetic who has chronic renal disease stage I. Initial laboratory revealed elevated troponin of 55, proBNP 8, BUN 25, creatinine 1.3, hematocrit was 35.8. Glucose was 268. He is admitted for diuresis and for further evaluation including echocardiogram. PRESENT MEDICATIONS: Metoprolol 75 mg ER daily, levothyroxine 50 mcg daily, Humalog insulin p.r.n., Levemir 25 units b.i.d., hydrocodone 10/325 t.i.d. p.r.n. back pain, gabapentin 300 mg t.i.d., ferrous sulfate 325 mg 1 daily, Eliquis 5 mg b.i.d., allopurinol 300 mg q.a.m., and Tylenol p.r.n., also nitroglycerin sublingual p.r.n. ALLERGIES: None known. REVIEW OF SYSTEMS: Significant for hypertension and congestive heart failure. He has had no recent surgery except for the replacement of pacemaker. PHYSICAL EXAMINATION: VITAL SIGNS: Temperature 98.3 degrees, heart rate 60, respirations 17, blood pressure 136/76 initially on presentation in the emergency room, then 193/96 by the time he was transferred to the floor. O2 saturation was 100% on room air. HEENT: Pupils equal, round, and reactive to light. Pharynx benign with no erythema or exudate. NECK: Supple with no mass or lymphadenopathy. There is no carotid bruit. HEART: Regular in rate and rhythm with no murmur, rub or gallop. LUNGS: Decreased breath sounds at the bases, but no rales. ABDOMEN: Obese with no mass or organomegaly. EXTREMITIES: 3+ ankle edema bilaterally. RECTAL AND GENITALIA: Deferred. IMPRESSION: Diastolic congestive heart failure with dyspnea on exertion, elevation of troponin, hypothyroidism, diabetes, hypertension, obesity, peripheral edema. PLAN: Admit for diuresis and further evaluation. cc: Steve Ibrahim MD
[2019-05-02] MEDS ORDERED: NORVASC PO ONE (18:33)
[2019-05-02] MEDS ORDERED: PRAVACHOL PO SCH (21:00)
[2019-05-02] MEDS: ELIQUIS PO SCH (23:15)
[2019-05-02] MEDS: PRAVACHOL PO SCH (23:16)
[2019-05-02] MEDS: LEVEMIR SUBQ SCH (23:16)
[2019-05-03 06:10] LABS: CALCIUM 8.4 mg/dL (8.8-10.2); CREATININE 1.3 mg/dL (0.7-1.2); POTASSIUM 4.4 mmol/L (3.5-5.1)
[2019-05-03] MEDS: SYNTHROID PO SCH (06:30)
[2019-05-03] MEDS: HUMALOG SUBQ SCH ×4 (06:30→22:27)
[2019-05-03] MEDS: ZYLOPRIM PO SCH (09:13)
[2019-05-03] MEDS: TOPROL XL PO SCH (09:13)
[2019-05-03] MEDS: FERROUS SULFATE PO SCH (09:13)
[2019-05-03] MEDS: ELIQUIS PO SCH ×2 (09:14→22:29)
[2019-05-03] MEDS: NEURONTIN PO SCH ×3 (09:23→16:51)
[2019-05-03] MEDS ORDERED: LASIX IV ONE (09:29)
--- NOTE | 2019-05-03 09:49 | PROGRESS NOTE ---
DATE: 05/03/2019 Vital signs stable with temperature 97.9 degrees, heart rate 56, respirations 20, blood pressure 152/79, O2 saturation on room air 98%. LABORATORY: Sodium 140, potassium 4.4, BUN 27, creatinine 1.3, glucose 172. TSH 3.4. Chest is clear. Ankle edema is a little less. PLAN: Continue IV Lasix. If he is feeling well tomorrow, he may be able to go home. Recheck of BMP will be done tomorrow morning. cc: Steve Ibrahim MD
[2019-05-03] MEDS: LEVEMIR SUBQ SCH ×2 (13:34→22:32)
[2019-05-03] MEDS: KLOR-CON PO SCH ×2 (13:43→16:51)
[2019-05-03] MEDS: LASIX IV SCH (22:28)
[2019-05-03] MEDS: PRAVACHOL PO SCH (22:29)
[2019-05-04] MEDS ORDERED: INSULIN PEN NEEDLES ONE ×2 (05:01→08:49)
[2019-05-04 06:15] LABS: CALCIUM 9.1 mg/dL (8.8-10.2); CREATININE 1.5 mg/dL (0.7-1.2); POTASSIUM 4.1 mmol/L (3.5-5.1)
[2019-05-04] MEDS: SYNTHROID PO SCH (06:25)
[2019-05-04] MEDS: HUMALOG SUBQ SCH (06:41)
[2019-05-04 07:55] VITALS: BP 147/77
[2019-05-04] MEDS: TOPROL XL PO SCH (09:31)
[2019-05-04] MEDS: FERROUS SULFATE PO SCH (09:31)
[2019-05-04] MEDS: ZYLOPRIM PO SCH (09:31)
[2019-05-04] MEDS: LASIX IV SCH (09:31)
[2019-05-04] MEDS: KLOR-CON PO SCH (09:31)
[2019-05-04] MEDS: ELIQUIS PO SCH (09:32)
[2019-05-04] MEDS: LEVEMIR SUBQ SCH (09:32)
[2019-05-04] MEDS: NEURONTIN PO SCH (09:32)
--- NOTE | 2019-05-04 15:05 | DISCHARGE SUMMARY ---
ADMISSION DATE: 05/02/2019 DISCHARGE DATE: 05/04/2019 DISCHARGE DIAGNOSES: 1. Dyspnea, along with leg swelling secondary to acute on chronic systolic congestive heart failure. 2. Type 2 diabetes mellitus. 3. Hypertension. 4. Dyslipidemia. 5. Hypothyroidism. HOSPITAL COURSE: Mr. Fernandez is a 68-year-old gentleman who was admitted to the hospital on 05/02/2019 after he presented to the emergency room with shortness of breath along with leg swelling. He states that he missed several of his furosemide tablets since he ran out of that medicine prior to this admission. He denied having any chest pain, and his cardiac enzymes were negative for any acute myocardial ischemic event. Since admission he received IV furosemide with which his condition including shortness of breath along with leg swelling have improved. Since he is feeling better, he is going to be discharged home today. He has been advised to take all his medications appropriately as prescribed and continue with low-salt diet. DISCHARGE MEDICATIONS: 1. Allopurinol 300 mg orally once daily. 2. Clopidogrel 75 mg orally once daily. 3. Apixaban 5 mg orally twice daily. 4. Ferrous sulfate 325 mg orally once daily. 5. Furosemide 80 mg orally twice daily. 6. Gabapentin 300 mg orally 3 times a day. 7. Hydrocodone/acetaminophen 10 mg/325 mg orally 3 times a day as needed for pain. 8. Levemir insulin 25 units subcutaneously every 12 hours. 9. Levothyroxine 50 mcg orally once daily. 10. Losartan 50 mg orally once daily. 11. Metoprolol ER 25 mg orally once daily. 12. Pravastatin 20 mg orally once daily at bedtime. 13. Nitroglycerin 0.4 mg sublingual tablet as needed for chest pain. FOLLOW-UP INSTRUCTIONS: He will follow up with me at the office in approximately 1 week. CONDITION: Stable. DISPOSITION: Home. cc: MD Steve Whitfield MD
--- NOTE | 2019-05-04 15:35 | ECHO REPORT ---
ORDER DATE: 05/03/2019 INTERPRETING PHYSICIAN: Dr. Alek Montelongo. ECHOCARDIOGRAPHIC MEASUREMENTS: 1. Interventricular septum: 1.3 cm. 2. Left ventricular posterior wall: 1.3 cm. 3. Left ventricular diastolic diameter: 4.3 cm. 4. Left atrium: 5.1 cm. 5. Aorta: 3.6 cm. SUMMARY OF THE 2-DIMENSIONAL IMAGIN. Mitral valve leaflets are normal. There is mitral annular calcification. 2. Aortic valve leaflets are mildly sclerosed, trileaflet. 3. Pulmonic valve was normal. 4. Technically suboptimal study. Poor acoustic window. 5. There is mild mitral regurgitation. 6. Indeterminate diastolic dysfunction. 7. Peak velocity across the aortic valve less than 2 m/sec by Doppler studies. There is no aortic stenosis or regurgitation. 8. Mild tricuspid regurgitation. Peak velocity across the tricuspid valve was 2.5 m/sec. 9. Pulmonary systolic pressure of 35 mmHg. 10. Pacing leads were noted in the right chamber. Interventricular septum measured 2.3 cm. Optison was used to assess left ventricular systolic function. Normal left ventricular cavity size. Concentric left ventricular hypertrophy. Estimated ejection fraction of 55%. There is mild apical hypokinesis. 11. There is no pericardial effusion. No obvious intracardiac mass or thrombus seen. cc: MD Steve Saenz MD
== END 2019-05-04 11:13 | disposition home or self-care (01) | DRG 291 ==
LOC: ED 12:06 → EDIPHOLD 15:28 → 1N 21:48
PROVIDERS: ADMIT Family Medicine; ATTEND Internal Medicine